=== PATIENT | female | born 1960 | race Caucasian/White ===

== ENCOUNTER 2018-11-01 09:08 | Outpatient (CLI) | payer OTHER ==
[~2018-11-01 09:08] MED LIST: CIPRO500 MG PO; CYMBALTA30 MG PO; LOTREL 5-20 MG1 CAP PO; SYNTHROID50 MCG; TOPAMAX25 M1 PO; [UNRECOGNIZED DRUG - OTHER] RC
== END 2018-11-01 10:33 | disposition home or self-care (01) ==
LOC: SONOGRAMA 09:08
DX: E04.2 Nontoxic multinodular goiter (principal)